=== PATIENT | female | born 1985 | race Caucasian/White ===

== ENCOUNTER 2017-03-29 01:37 | Inpatient (IN) | payer MEDICAID, OTHER ==
--- NOTE | 2017-03-29 02:26 | ED ---
General Adult HPI - General Chief complaint: Psychiatric Symptoms Stated complaint: mental health Time Seen by Provider: 03/29/17 02:10 Source: patient, RN notes reviewed Mode of arrival: ambulatory Limitations: no limitations - History of Present Illness Initial comments: Patient is a pleasant 31-year-old female presenting to the emergency Department with depression. Symptoms have been occurring for many months. Patient has had multiple events leading to her depression including loss of mother. Patient stays at home for long periods of time. Patient is unclear she has suicidal thoughts. No homicidal thoughts. No physical complaints. No alcohol or street drug use. No hallucinations. - Related Data Home Medications Medication Instructions Recorded Confirmed Amoxicillin/Potassium Clav 1 tab PO Q12HR 03/29/17 03/29/17 [Augmentin 875-125 Tablet] methylPREDNISolone Dose Pack 4 mg PO DIRECTED 03/29/17 03/29/17 [Medrol Dose Pack] Allergies Allergy/AdvReac Type Severity Reaction Status Date / Time No Known Allergies Allergy Verified 03/29/17 01:45 Review of Systems ROS Statement: Those systems with pertinent positive or pertinent negative responses have been documented in the HPI. ROS Other: All systems not noted in ROS Statement are negative. Constitutional: Denies: fever Eyes: Denies: eye pain ENT: Denies: ear pain Respiratory: Denies: cough Cardiovascular: Denies: chest pain Endocrine: Denies: fatigue Gastrointestinal: Denies: abdominal pain Genitourinary: Denies: dysuria Musculoskeletal: Denies: back pain Skin: Denies: rash Neurological: Denies: headache Psychiatric: Reports: depression Past Medical History Past Medical History: Cancer Additional Past Medical History / Comment(s): cervical cancer, migraine, tachycardia History of Any Multi-Drug Resistant Organisms: None Reported Past Surgical History: Cardiac Ablation, Hysterectomy Past Psychological History: Anxiety, PTSD Smoking Status: Never smoker Past Alcohol Use History: None Reported Past Drug Use History: None Reported General Exam Limitations: no limitations General appearance: alert, in no apparent distress Head exam: Present: atraumatic Eye exam: Present: normal appearance Neck exam: Present: normal inspection Respiratory exam: Present: normal lung sounds bilaterally Cardiovascular Exam: Present: regular rate, normal rhythm GI/Abdominal exam: Present: soft. Absent: tenderness Extremities exam: Present: normal inspection Neurological exam: Present: alert Psychiatric exam: Present: depressed Skin exam: Present: normal color, other (Patient has multiple small punctures of bilateral forearms consistent with stated history of recent ALLERGY testing.) Course Vital Signs 03/29/17 01:39 Temperature 98.7 F Pulse Rate 84 Respiratory 20 Rate Blood Pressure 112/77 O2 Sat by Pulse 100 Oximetry - Reevaluation(s) Reevaluation #1: 03/29/17 04:15 Patient was seen by mental health services, who will admit. Disposition Clinical Impression: Depression Disposition: TRANSFER TO PSYCH HOSP/UNIT Referrals: Kelvin Teague MD [Primary Care Provider] - 1-2 days Decision Time: 04:15
[2017-03-29] MEDS ORDERED: MAG HYDROX/AL HYDROX/SIMETH 30 ML CUP PO PRN (04:26)
[2017-03-29] MEDS ORDERED: MAGNESIUM HYDROXIDE 2,400 MG/10 ML CUP PO PRN (04:26)
[2017-03-29] MEDS ORDERED: ACETAMINOPHEN TAB 325 MG TAB PO PRN (04:26)
[2017-03-29 07:57] LABS: Basophils % (A) 0 %; Eosinophils # (A) 0.1 k/uL (0-0.7); Eosinophils % (A) 1 %; HCT 40.6 % (34.0-46.0); HGB 13.4 gm/dL (11.4-16.0); Lymphocytes # (A) 2.5 k/uL (1.0-4.8); Lymphocytes % (A) 27 %; MCH 29.6 pg (25.0-35.0); MCHC 32.9 g/dL (31.0-37.0); Mean Platelet Volume 8.9; Monocytes # (A) 0.6 k/uL (0-1.0); Monocytes % (A) 6 %; Neutrophils # (A) 6.2 k/uL (1.3-7.7); Neutrophils % (A) 66 %; Platelet Count 240 k/uL (150-450); RBC 4.51 m/uL (3.80-5.40); RDW 13.8 % (11.5-15.5); WBC 9.4 k/uL (3.8-10.6)
[2017-03-29 08:40] LABS: ALT 27 U/L (9-52); AST 13 U/L (14-36); Albumin 4.1 g/dL (3.5-5.0); Alkaline Phosphatase 33 U/L (38-126); Anion Gap 11 mmol/L; Blood Urea Nitrogen 10 mg/dL (7-17); Calcium 9.8 mg/dL (8.4-10.2); Carbon Dioxide 23 mmol/L (22-30); Chloride 108 mmol/L (98-107); Cholesterol 144 mg/dL (<200); Glucose 92 mg/dL (74-99); HDL Cholesterol 53 mg/dL (40-60); LDL Cholesterol,Calculated 81 mg/dL (0-99); Potassium 3.7 mmol/L (3.5-5.1); Sodium 142 mmol/L (137-145); Total Bilirubin 1.2 mg/dL (0.2-1.3); Total Protein 6.8 g/dL (6.3-8.2); Triglycerides 49 mg/dL (<150)
[2017-03-29] MEDS ORDERED: NADOLOL 20 MG TAB PO SCH (09:00)
[2017-03-29] MEDS: AMOXIC-POT CLAV 875-125MG 1 EACH TAB PO SCH ×2 (10:05→20:49)
[2017-03-29] MEDS: methylPREDNISolone 4 MG TAB TAPER PO SCH (10:42)
[2017-03-29] MEDS ORDERED: diphenhydrAMINE 25 MG CAP PO PRN (13:32)
[2017-03-29 16:31] LABS: Amorphous Sediment,Urine Rare /hpf; Appearance,Urine Turbid (Clear); Bacteria,Urine Many /hpf; Bilirubin,Urine Negative (Negative); Blood,Urine Negative (Negative); Color,Urine Yellow; Glucose,Urine (UA) Negative (Negative); Ketones,Urine Negative (Negative); Leukocyte Esterase,Urine Trace (Negative); Mucus,Urine Many /hpf; Nitrite,Urine Negative (Negative); PH, Urine 8.5 (5.0-8.0); Protein,Urine Trace (Negative); Specific Gravity,Urine 1.015 (1.001-1.035); Squamous Epithelial Cell,Urine 69 /hpf (0-4); WBC,Urine 12 /hpf (0-5)
[2017-03-29 16:33] LABS: Amphetamine Screen,Urine Not Detected (NotDetected); Barbiturate Screen,Urine Not Detected (NotDetected); Benzodiazepines Screen,Urine Not Detected (NotDetected); Cocaine Screen,Urine Not Detected (NotDetected); Methadone Screen, Urine Not Detected (NotDetected); Opiate Screen,Urine Not Detected (NotDetected); Oxycodone Screen, Urine Not Detected (NotDetected); Phencyclidine Screen,Urine Not Detected (NotDetected); Tricyclic Antidepressant,Urine Not Detected (NotDetected); Urn Cannabinoid Scrn Not Detected (NotDetected)
[2017-03-29 18:49] LABS: Hemoglobin A1C 4.9 % (4.0-6.0)
[2017-03-29] MEDS: FLUoxetine HCL 20 MG CAP PO SCH (19:36)
[2017-03-29] MEDS: OLANZapine 5 MG TAB PO SCH ×2 (19:36→20:49)
--- NOTE | 2017-03-29 19:59 | HP ---
HISTORY AND PHYSICAL DATE OF SERVICE: 03/29/2017 IDENTIFYING DATA: Patient is a 31-year-old female. She resides with her significant other and their 3 children. She presented to the emergency room with the chief complaint that the patient was depressed. She feels she has not been able to function. She says, "I feel broken." She has explosive moods. HISTORY OF PRESENTING ILLNESS: The patient has not had significant past psychiatric issues. She did have a hospitalization at age 17 relating to difficulties in her family situation. Other than that, she has not been on any psychotropic medications. Recently she has been taking Adipex 37.5 mg a day because of significant weight gain. She has had some migraine headache issues. She says her problems began to develop going back to July. Her mother on Mother's Day. Her mother of alcoholic cirrhosis and had a very long history of progressive problems with alcohol and drugs. Soon after that there were some problem issues with her 8-year-old who had some aggressive behavior and then was hospitalized at [facility]. In short succession after that her grandfather had some medical issues that were diagnosed as cancer that was quite progressive. He had some extensive medical care that was not producing any benefits. He ultimately went home. The family took care of him at home and he ended up passing away in December. In addition to that, there were significant ups and downs in her relationship with her father, who has serious substance use issues, including alcohol. He was in penitentiary for his DU. He was in penitentiary for 2-1/2 years and was released in December. At one point about 7 years ago he had a complete turnaround and stopped using alcohol and drugs. He re-developed a relationship with the patient, though then he ended up relapsing and things just got more severe. All of these things have come to a head for her. In addition, there are some issues with her children. Her 12-year-old daughter has a number of physical issues. She is a high achiever and does well in school but has some various physical issues that need to be closely attended to. Also her 8-year- old son has struggled with a lot of functional issues. He has sensory issues. He may well have autistic spectrum disorder. He has impulsive behavior and severe anxiety. He has obsessive-compulsive symptoms. The patient says that she struggles trying to provide good support for her son. She notes that at home she tends to show more problems with depression; over time she has been more isolated. Now she does not leave the house. She can have episodes where she is explosive where she will yell, become very agitated and throw things. She says she takes it out on the family, though it is not that they have done anything to set her off. She acknowledges that some of those reactions may be more PTSD flashbacks than anything else. She has been not sleeping well. She has loss of motivation, energy and interest. She has a lot of anxiety. She gets panic symptoms. She denies hallucinations or delusions. She reports no issues with alcohol, marijuana or other abusive substances. She is admitted for further evaluation. SUBSTANCE USE HISTORY: As above. PAST MEDICAL HISTORY AND PHYSICAL EXAMINATION: As per medical consultation. FAMILY AND SOCIAL HISTORY: As above. She notes that both of her children are intellectually high achievers. She says that between the two children she gave to a son who soon after secondary to trisomy 13. She grew up in a family with a very disorganized home situation. She said it was chaotic at home. At age 12 she ended up going into foster care. At age 17 she ran away from foster care and went back to her grandparents' home. She ultimately had custody placed in her grandparents. It is noted that between her parents there was very little attention to the home situation; often there was not food in the house. Both parents were intoxicated or doing drugs most all of the time. The patient notes that she has likely significant OCD symptoms. She says she constantly needs to be in control of things and be very overbearing on her boyfriend and children. In that regard, she cleans obsessively. She has some handwashing behavior. She has some other rituals. MENTAL STATUS EXAMINATION: Patient was somewhat restless. She gave good eye contact. She answered questions with direct responses. She was spontaneous and interactive. Her affect was intense. She had some crying spells during the interview. She could collect herself. Her mood was depressed. She was significantly distressed. She was oriented x3 and alert. Recent and remote memory was intact. Attention and concentration were good. She did not answer formal cognitive questions. Fund of knowledge and intellectual level average or above average. ASSESSMENT: This is a 31-year-old female who is diagnosed with major depression and post-traumatic stress disorder. She has been on Adipex, which could be aggravating some of her anxiety and mood-related issues. She has had multiple stressors that have compounded her mood and anxiety issues. She also has what appears to be fairly intense PTSD symptoms. Strengths include [place] intelligence and leading a productive life. Weakness includes adjustment to manage multiple stressors. DIAGNOSES: 1. Major depression, severe, without psychotic features. 2. Post-traumatic stress disorder. 3. Rule out obsessive-compulsive disorder. 4. History of migraine headaches. RECOMMENDATION: Patient will be admitted for comprehensive medical, psychiatric and psychosocial evaluation. We will engage the patient in individual and group therapeutic activities. I will start the patient on Prozac 20 mg a day. We discussed the indication for Prozac primarily for depression, though the patient may well have symptoms of obsessive- compulsive disorder as well. I will also start the patient on Zyprexa 5 mg 3 times a day. The aim of Zyprexa is to help augment her antidepressant and reduce physiologic stress response as it relates to multiple grief issues and likely post-traumatic flashbacks. We will focus on stabilization and discharge planning. MMODL / IJN: [id number] /
[2017-03-29] MEDS ORDERED: PREGABALIN 100 MG CAP PO SCH (21:00)
[2017-03-30] MEDS: FLUoxetine HCL 20 MG CAP PO SCH (08:56)
[2017-03-30] MEDS: OLANZapine 5 MG TAB PO SCH ×3 (08:56→20:42)
[2017-03-30] MEDS: LORATADINE 10 MG TAB PO SCH (08:56)
[2017-03-30] MEDS: AMOXIC-POT CLAV 875-125MG 1 EACH TAB PO SCH ×2 (08:56→20:41)
[2017-03-30] MEDS: NADOLOL 20 MG TAB PO SCH (08:57)
[2017-03-30] MEDS: methylPREDNISolone 4 MG TAB TAPER PO SCH (08:57)
[2017-03-30] MEDS ORDERED: methylPREDNISolone 4 MG TAB TAPER PO SCH (09:00)
[2017-03-30] MEDS ORDERED: TOPIRAMATE 100 MG TAB PO SCH (09:00)
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
--- NOTE | 2017-03-30 17:24 | PN ---
PROGRESS NOTE DATE OF SERVICE: 03/30/2017. CHIEF COMPLAINT: The patient was depressed. She feels she has not been able to function. She says "I feel broken." She has explosive moods. INTERVAL HISTORY: Patient has been doing fair. She had a quiet evening last night. She slept fair. Today she has been up. She says she is a little tired today. She thinks some of that relates to her medications and some to the fact that she did not get much sleep on the day of admission. It is also noted that she is being treated for a sinus infection and may be impacted by that as well. She says she has been attending groups and gaining some skills with that. She says it is interesting that she works with her 8-year-old son in coping skills and then herself went to a session today where the focus was coping skills. She was able to show some insight about some of her long-term issues. She acknowledges that one of her coping skills as a child was that she would simply pretend that everything was okay. This would get her through some pretty horrific situations. Also another coping skills she had was cutting herself when anxiety got too bad. She states she is able to acknowledge that some of the outbursts she has now probably relate to flashbacks to struggle she had early in life. She was able to discuss parenting issues that she thinks that could be addressed when she is back home. She has been touching base with her significant other with the plan to have a family meeting as part of discharge planning. She has not had change in her general health. She tolerates his psychotropic medications. MENTAL STATUS: Patient gave good eye contact. She was a little restless. Her thoughts were clear. She had an anxious affect. Her mood was dysphoric. She was somewhat distressed. ASSESSMENT: I will continue the current diagnosis and treatment plan. I will continue psychotropic medications the same. We had an extensive discussion regarding some of her psychodynamic issues. We talked about the option of her getting involved in the exposure therapy to address PTSD issues when she gets back to her individual psychotherapy. We will set up a family meeting for Sunday and it is reasonable at that point, I would look for discharge on Sunday. MARÍA / NIDHIN: [id number] /
[2017-03-31 07:05] VITALS: RESP 16
[2017-03-31] MEDS: AMOXIC-POT CLAV 875-125MG 1 EACH TAB PO SCH ×2 (09:44→20:59)
[2017-03-31] MEDS: NADOLOL 20 MG TAB PO SCH (09:44)
[2017-03-31] MEDS: methylPREDNISolone 4 MG TAB TAPER PO SCH (09:44)
[2017-03-31] MEDS: LORATADINE 10 MG TAB PO SCH (09:45)
[2017-03-31] MEDS: OLANZapine 5 MG TAB PO SCH ×3 (09:45→20:59)
[2017-03-31] MEDS: FLUoxetine HCL 20 MG CAP PO SCH (09:45)
--- NOTE | 2017-03-31 18:41 | PN ---
PROGRESS NOTE DATE OF SERVICE: 03/31/2017. INTERVAL HISTORY: Patient is seen in cross coverage today for Dr. Hawkins. She reports that her mood is doing better. She seems to be tolerating the psychotropic medications well. She is currently on Prozac and Zyprexa. She described some prior to hospitalization she had been feeling overwhelmed by multiple recent stressors. MENTAL STATUS EXAM: She is alert, pleasant, and cooperative. Her mood is improved. Her speech is fluent not rapid or pressured. She denies any thoughts of suicide. She does not show any evidence of psychosis or agitation. PLAN: The patient will be maintained on current psychotropic medication regimen. We will monitor for any medication side effects. Continue to monitor her mood and ongoing response. MMODL / IJN: [id number] /
[2017-04-01] MEDS: FLUoxetine HCL 20 MG CAP PO SCH (09:33)
[2017-04-01] MEDS: NADOLOL 20 MG TAB PO SCH (09:33)
[2017-04-01] MEDS: methylPREDNISolone 4 MG TAB TAPER PO SCH (09:33)
[2017-04-01] MEDS: OLANZapine 5 MG TAB PO SCH ×3 (09:33→20:50)
[2017-04-01] MEDS: LORATADINE 10 MG TAB PO SCH (09:33)
[2017-04-01] MEDS: AMOXIC-POT CLAV 875-125MG 1 EACH TAB PO SCH ×2 (09:33→20:50)
--- NOTE | 2017-04-01 15:53 | PN ---
PROGRESS NOTE DATE OF SERVICE: 04/01/2017. INTERVAL HISTORY: Patient is seen in cross coverage again today for Dr. Hawkins. She reports that she does feel like she has made progress here. She talks about feeling like she will be ready for discharge tomorrow. She does feel somewhat tired, she thinks related to the medication, but it is tolerable. She did have a visit with her boyfriend last night, which went well. MENTAL STATUS EXAM: She is alert, pleasant, cooperative. Her speech is fluent. Her thought process is organized. Her mood seems to be improved. She denies any thoughts of harm to self or others. No evidence of active psychosis. She denies any hallucinations. She does not make any delusional statements. PLAN: Patient will be maintained on current psychotropic medication regimen. Continue to monitor for any medication side effects. Monitor her ongoing response. Dr. Hawkins to resume care of this patient starting tomorrow. MMLEFTYL / NIDHIN: [id number] /
[2017-04-02 06:37] VITALS: BP 100/57; PULSE 77; TEMP 98.6
[2017-04-02] MEDS: AMOXIC-POT CLAV 875-125MG 1 EACH TAB PO SCH (08:30)
[2017-04-02] MEDS: NADOLOL 20 MG TAB PO SCH (08:30)
[2017-04-02] MEDS: LORATADINE 10 MG TAB PO SCH (08:30)
[2017-04-02] MEDS: FLUoxetine HCL 20 MG CAP PO SCH (08:30)
[2017-04-02] MEDS: OLANZapine 5 MG TAB PO SCH (08:30)
[2017-04-02] MEDS: methylPREDNISolone 4 MG TAB TAPER PO SCH (08:30)
--- NOTE | 2017-04-02 13:12 | DS ---
DISCHARGE SUMMARY DATE OF SERVICE: 04/02/2017 DATE OF ADMISSION: 03/29/2017 DATE OF DISCHARGE: 04/02/2017 ADMISSION AND DISCHARGE DIAGNOSES: 1. Major depression, severe, without psychotic features. 2. Posttraumatic stress disorder. 3. Rule out obsessive-compulsive disorder. 4. History of migraine headaches. HISTORY OF PRESENTING ILLNESS: The patient is a 31-year-old female. She was admitted due to increasing problems with depression. She talked about not being able to function and described herself as "I feel broken". She had explosive episodes. She had a past psychiatric hospitalization at age 17 relating to difficult family situations. Currently she was not on any psychotropic medications. She was taking Adipex 37.5 mg a day for weight reduction. She has a history of migraine headaches. She has had many family issues. There was a chaotic family environment growing up. In addition, her mother this past Mother's Day, which caused her a lot of distress. Her mother has severe alcohol and drug problems. The patient noted that she had been withdrawing. She did not want to come out of the house. She was having sleep problems. She struggled with family issues as well. She and her significant other would get into arguments that would invariably lead to her having a blowup where she would become agitated and aggressive. Also, she has an 8-year-old son who has significant behavior issues. She described a lot of obsessive and compulsive behaviors. She had poor sleep and loss of motivation, energy and interest. She had high anxiety and was getting frequent panic attacks. There was no indication of thought disorder. There was no substance use issue. She was admitted for further evaluation. PAST MEDICAL HISTORY AND PHYSICAL EXAM: As per medical consultation of Dr. Teague. MENTAL STATUS EXAM: The patient was somewhat restless. She gave good eye contact. She answered questions with direct responses. Her affect was intense. She had some crying during the interview. Her mood was depressed. She was significantly distressed. Cognitive exam was clear. COURSE OF HOSPITALIZATION: Patient was admitted for comprehensive medical psychiatric and psychosocial evaluation. We engaged the patient in individual and group therapeutic activities. On admission, the patient was started on Prozac 20 mg a day. The aim of Prozac was to help address not only depression but potentially some OCD range of symptoms. In addition, she was started on Zyprexa 5 mg 3 times a day. The aim of Zyprexa was to help reduce physiologic stress response as it related to possible PTSD flashbacks and possibly some withdrawal from her Adipex. During the early course of her hospitalization. the patient was reporting that she felt a little uncomfortable with her medications. She could not really describe particulars of that. She said after a day or 2 that seemed to quiet down and she felt like she was "my normal self". She attended groups. She was interactive with others. She got into a good sleep pattern. She was able to engage in discharge planning. We had a family meeting with the patient's aunt who is the closest family member to her other than with her significant other with whom she lives. They were able to discuss communication issues in particularly how the patient tends to close herself off when things begin to bother her. The patient seemed to gain good insight about some of her own issues that she wanted to work on. She also felt that her and her significant other needed to work on their relationship and other communication issues. The patient's mood had improved significantly. She had a better outlook. She had set up some good goals for herself. We did discuss the possibility of her getting involved in some exposure therapy for PTSD symptoms. CONDITION AT DISCHARGE: Patient was stable. Mood was improved. She tolerated her medications well. She was motivated for followup. RECOMMENDATIONS AND FOLLOWUP: Patient is discharged to home. Discharge medications include: 1. Prozac 20 mg a day. 2. Zyprexa 5 mg 3 times a day. 3. In addition, she would continue on Corgard 20 mg a day. 4. Zanaflex 4 mg twice a day. 5. Zyrtec 10 mg daily. 6. Medrol dose pack as appropriate. She has a followup with Dr. Anglin on 04/03/2017 at 9 a.m. for individual therapy. She will see Dr. Teague for primary care. MMODL / IJN: [id number] /
== END 2017-04-02 13:00 | disposition home or self-care (01) | DRG 885 ==
LOC: EC 01:37 → 3MHU 04:18
PROVIDERS: ADMIT Psychiatry & Neurology Psychiatry; ATTEND Psychiatry & Neurology Psychiatry
DX: F32.2 Major depressive disorder, single episode, severe without psychotic features (principal); F41.0 Panic disorder [episodic paroxysmal anxiety]; F42.9 Obsessive-compulsive disorder, unspecified; F43.10 Post-traumatic stress disorder, unspecified; G43.909 Migraine, unspecified, not intractable, without status migrainosus; G47.00 Insomnia, unspecified; Z90.710 Acquired absence of both cervix and uterus; Z79.899 Other long term (current) drug therapy
CPT/HCPCS: 80053; 80061; 80306; 81001; 81025; 82075; 83036; 84443; 85025; 99285

== ENCOUNTER 2017-11-28 16:16 | Inpatient (IN) | payer MEDICAID, OTHER ==
--- NOTE | 2017-11-28 17:40 | ED ---
Psych HPI - General Chief Complaint: Psychiatric Symptoms Stated Complaint: Mental Health Time Seen by Provider: 11/28/17 17:04 Source: patient, RN notes reviewed Mode of arrival: ambulatory Limitations: no limitations - History of Present Illness Initial Comments: 32-year-old female presents emergency Department chief complaint of depression, suicidal ideation. Patient states she was seen and admitted in March here. Patient states that she had to this in the family which causes her to be very depressed. She was placed on antidepressants and she was feeling okay and felt that she did not need to take her meds anymore so she stopped her Prozac. She also stated that it was causing her to gain weight which made her also feel worse. Patient states that now she cannot tolerate the symptoms that she has been having intermittent suicidal ideations with no plan. Denies any drug or alcohol abuse. Patient has no physical complaints. Patient states that she has no homicidal ideation - Related Data Home Medications Medication Instructions Recorded Confirmed No Known Home Medications 11/28/17 11/28/17 Allergies Allergy/AdvReac Type Severity Reaction Status Date / Time No Known Allergies Allergy Verified 11/28/17 17:10 Review of Systems ROS Statement: Those systems with pertinent positive or pertinent negative responses have been documented in the HPI. ROS Other: All systems not noted in ROS Statement are negative. Past Medical History Past Medical History: Cancer Additional Past Medical History / Comment(s): cervical cancer, migraine, tachycardia History of Any Multi-Drug Resistant Organisms: None Reported Past Surgical History: Cardiac Ablation, Hysterectomy Past Psychological History: Anxiety, PTSD Smoking Status: Never smoker Past Alcohol Use History: None Reported Past Drug Use History: None Reported General Exam Limitations: no limitations General appearance: alert, in no apparent distress ENT exam: Present: normal exam, normal oropharynx, mucous membranes moist Neck exam: Present: normal inspection. Absent: tenderness, meningismus, lymphadenopathy Respiratory exam: Present: normal lung sounds bilaterally. Absent: respiratory distress, wheezes, rales, rhonchi, stridor Cardiovascular Exam: Present: regular rate, normal rhythm, normal heart sounds. Absent: systolic murmur, diastolic murmur, rubs, gallop, clicks GI/Abdominal exam: Present: soft, normal bowel sounds. Absent: distended, tenderness, guarding, rebound, rigid Neurological exam: Present: alert, oriented X3, CN II-XII intact Psychiatric exam: Present: depressed Skin exam: Present: warm, dry, intact, normal color. Absent: rash Course Vital Signs 11/28/17 16:45 Temperature 98.2 F Pulse Rate 91 Respiratory 20 Rate Blood Pressure 114/80 O2 Sat by Pulse 100 Oximetry Medical Decision Making - Lab Data Lab Results 11/28/17 Range/Units 18:00 Urine Opiates Screen Not Detected (NotDetected) Ur Oxycodone Screen Not Detected (NotDetected) Urine Methadone Screen Not Detected (NotDetected) Ur Propoxyphene Screen Not Detected (NotDetected) Ur Barbiturates Screen Not Detected (NotDetected) U Tricyclic Antidepress Not Detected (NotDetected) Ur Phencyclidine Scrn Not Detected (NotDetected) Ur Amphetamines Screen Not Detected (NotDetected) U Methamphetamines Scrn Not Detected (NotDetected) U Benzodiazepines Scrn Not Detected (NotDetected) Urine Cocaine Screen Not Detected (NotDetected) U Marijuana (THC) Screen Not Detected (NotDetected) Disposition Clinical Impression: Depression, Suicidal ideation Disposition: ADMITTED IP TO THIS [facility] Condition: Stable Referrals: Kelvin Teague MD [Primary Care Provider] - 1-2 days
[2017-11-28 18:24] LABS: Amphetamine Screen,Urine Not Detected (NotDetected); Barbiturate Screen,Urine Not Detected (NotDetected); Benzodiazepines Screen,Urine Not Detected (NotDetected); Cocaine Screen,Urine Not Detected (NotDetected); Methadone Screen, Urine Not Detected (NotDetected); Opiate Screen,Urine Not Detected (NotDetected); Oxycodone Screen, Urine Not Detected (NotDetected); Phencyclidine Screen,Urine Not Detected (NotDetected); Tricyclic Antidepressant,Urine Not Detected (NotDetected); Urn Cannabinoid Scrn Not Detected (NotDetected)
[2017-11-28] MEDS ORDERED: ACETAMINOPHEN TAB 325 MG TAB PO STA (20:22)
[2017-11-28] MEDS ORDERED: ACETAMINOPHEN TAB 325 MG TAB PO PRN (21:00)
[2017-11-28] MEDS ORDERED: MAGNESIUM HYDROXIDE 2,400 MG/10 ML CUP PO PRN (21:00)
[2017-11-28] MEDS ORDERED: MAG HYDROX/AL HYDROX/SIMETH 30 ML CUP PO PRN (21:00)
[2017-11-28] MEDS ORDERED: LORazepam 1 MG TAB PO PRN (21:03)
[2017-11-28] MEDS ORDERED: diphenhydrAMINE 25 MG CAP PO PRN (21:04)
[2017-11-28] MEDS ORDERED: FLUoxetine HCL 20 MG CAP PO SCH (21:15)
[2017-11-28] MEDS: PALIPERIDONE 3 MG TAB.ER.24 PO SCH (22:30)
[2017-11-29] MEDS: FLUoxetine HCL 20 MG CAP PO SCH ×2 (09:18→14:39)
[2017-11-29 09:21] LABS: Basophils % (A) 1 %; Eosinophils # (A) 0.4 k/uL (0-0.7); Eosinophils % (A) 11 %; HGB 13.7 gm/dL (11.4-16.0); Lymphocytes # (A) 1.1 k/uL (1.0-4.8); Lymphocytes % (A) 31 %; MCHC 32.6 g/dL (31.0-37.0); MCV 88.9 fL (80.0-100.0); Monocytes # (A) 0.3 k/uL (0-1.0); Monocytes % (A) 8 %; Neutrophils # (A) 1.8 k/uL (1.3-7.7); Neutrophils % (A) 48 %; Platelet Count 198 k/uL (150-450); RBC 4.73 m/uL (3.80-5.40); RDW 12.3 % (11.5-15.5); WBC 3.7 k/uL (3.8-10.6)
[2017-11-29 09:34] LABS: ALT 17 U/L (9-52); AST 18 U/L (14-36); Albumin 4.2 g/dL (3.5-5.0); Alkaline Phosphatase 34 U/L (38-126); Anion Gap 11 mmol/L; Blood Urea Nitrogen 13 mg/dL (7-17); Calcium 9.4 mg/dL (8.4-10.2); Carbon Dioxide 26 mmol/L (22-30); Chloride 106 mmol/L (98-107); Glucose 84 mg/dL (74-99); Potassium 4.1 mmol/L (3.5-5.1); Sodium 143 mmol/L (137-145); Total Bilirubin 2.1 mg/dL (0.2-1.3); Total Protein 7.1 g/dL (6.3-8.2)
--- NOTE | 2017-11-29 10:03 | P.HP ---
Psychiatric H&P - . H&P Date: 11/29/17 History & Physical: 32-year-old female presents emergency Department chief complaint of depression, suicidal ideation. Patient states she was seen and admitted in March here. Patient states that she had to this in the family which causes her to be very depressed. She was placed on antidepressants and she was feeling okay and felt that she did not need to take her meds anymore so she stopped her Prozac. She also stated that it was causing her to gain weight which made her also feel worse. Patient states that now she cannot tolerate the symptoms that she has been having intermittent suicidal ideations with no plan. Denies any drug or alcohol abuse. Patient has no physical complaints. Patient states that she has no homicidal ideation Review of Systems ROS Statement: Those systems with pertinent positive or pertinent negative responses have been documented in the HPI. ROS Other: All systems not noted in ROS Statement are negative. Past Medical History Past Medical History: Cancer Additional Past Medical History / Comment(s): cervical cancer, cluster headache , tachycardia History of Any Multi-Drug Resistant Organisms: None Reported Past Surgical History: Cardiac Ablation, Hysterectomy Past Psychological History: Anxiety, PTSD Smoking Status: Never smoker Past Alcohol Use History: None Reported Past Drug Use History: None Reported General Exam Limitations: no limitations General appearance: alert, in no apparent distress ENT exam: Present: normal exam, normal oropharynx, mucous membranes moist Neck exam: Present: normal inspection. Absent: tenderness, meningismus, lymphadenopathy Respiratory exam: Present: normal lung sounds bilaterally. Absent: respiratory distress, wheezes, rales, rhonchi, stridor Cardiovascular Exam: Present: regular rate, normal rhythm, normal heart sounds. Absent: systolic murmur, diastolic murmur, rubs, gallop, clicks GI/Abdominal exam: Present: soft, normal bowel sounds. Absent: distended, tenderness, guarding, rebound, rigid Neurological exam: Present: alert, oriented X3, CN II-XII intact Psychiatric exam: Present: depressed Skin exam: Present: warm, dry, intact, normal color. Absent: rash Disposition hospitalized Clinical Impression: MDD Depression, Suicidal ideation Allergies Allergy/AdvReac Type Severity Reaction Status Date / Time mold Allergy Wheezing Verified 11/28/17 20:45 dust mites Allergy Wheezing Uncoded 11/28/17 20:45 trees Allergy Wheezing Uncoded 09/19/18 20:45 Vital Signs Temp 98.2 F 11/29/17 07:00 Pulse 124 H 11/29/17 07:00 Resp 16 11/29/17 07:00 BP 113/62 11/29/17 07:00 Pulse Ox 99 11/28/17 21:08 Intake & Output 11/28/17 11/29/17 11/29/17 18:59 06:59 18:59 Weight 65.317 kg 61.235 kg Laboratory Last Values WBC 3.7 k/uL (3.8-10.6) L 11/29/17 08:28 RBC 4.73 m/uL (3.80-5.40) 11/29/17 08:28 Hgb 13.7 gm/dL (11.4-16.0) 11/29/17 08:28 Hct 42.0 % (34.0-46.0) 11/29/17 08:28 MCV 88.9 fL (80.0-100.0) 11/29/17 08:28 MCH 29.0 pg (25.0-35.0) 11/29/17 08:28 MCHC 32.6 g/dL (31.0-37.0) 11/29/17 08:28 RDW 12.3 % (11.5-15.5) 11/29/17 08:28 Plt Count 198 k/uL (150-450) 11/29/17 08:28 Neutrophils % 48 % 11/29/17 08:28 Lymphocytes % 31 % 11/29/17 08:28 Monocytes % 8 % 11/29/17 08:28 Eosinophils % 11 % 11/29/17 08:28 Basophils % 1 % 11/29/17 08:28 Neutrophils # 1.8 k/uL (1.3-7.7) 11/29/17 08:28 Lymphocytes # 1.1 k/uL (1.0-4.8) 11/29/17 08:28 Monocytes # 0.3 k/uL (0-1.0) 11/29/17 08:28 Eosinophils # 0.4 k/uL (0-0.7) 11/29/17 08:28 Basophils # 0.0 k/uL (0-0.2) 11/29/17 08:28 Sodium 143 mmol/L (137-145) 11/29/17 08:28 Potassium 4.1 mmol/L (3.5-5.1) 11/29/17 08:28 Chloride 106 mmol/L (98-107) 11/29/17 08:28 Carbon Dioxide 26 mmol/L (22-30) 11/29/17 08:28 Anion Gap 11 mmol/L 11/29/17 08:28 BUN 13 mg/dL (7-17) 11/29/17 08:28 Creatinine 0.75 mg/dL (0.52-1.04) 11/29/17 08:28 Est GFR (CKD-EPI)AfAm >90 (>60 ml/min/1.73 sqM) 11/29/17 08:28 Est GFR (CKD-EPI)NonAf >90 (>60 ml/min/1.73 sqM) 11/29/17 08:28 Glucose 84 mg/dL (74-99) 11/29/17 08:28 Calcium 9.4 mg/dL (8.4-10.2) 11/29/17 08:28 Total Bilirubin 2.1 mg/dL (0.2-1.3) H 11/29/17 08:28 AST 18 U/L (14-36) 11/29/17 08:28 ALT 17 U/L (9-52) 11/29/17 08:28 Alkaline Phosphatase 34 U/L (38-126) L 11/29/17 08:28 Total Protein 7.1 g/dL (6.3-8.2) 11/29/17 08:28 Albumin 4.2 g/dL (3.5-5.0) 11/29/17 08:28 Urine HCG, Qual Not Detected (Not Detectd) 11/28/17 18:00 Urine Opiates Screen Not Detected (NotDetected) 11/28/17 18:00 Ur Oxycodone Screen Not Detected (NotDetected) 11/28/17 18:00 Urine Methadone Screen Not Detected (NotDetected) 11/28/17 18:00 Ur Propoxyphene Screen Not Detected (NotDetected) 11/28/17 18:00 Ur Barbiturates Screen Not Detected (NotDetected) 11/28/17 18:00 U Tricyclic Antidepress Not Detected (NotDetected) 11/28/17 18:00 Ur Phencyclidine Scrn Not Detected (NotDetected) 11/28/17 18:00 Ur Amphetamines Screen Not Detected (NotDetected) 11/28/17 18:00 U Methamphetamines Scrn Not Detected (NotDetected) 11/28/17 18:00 U Benzodiazepines Scrn Not Detected (NotDetected) 11/28/17 18:00 Urine Cocaine Screen Not Detected (NotDetected) 11/28/17 18:00 U Marijuana (THC) Screen Not Detected (NotDetected) 11/28/17 18:00 Impression: Major depression, recurrent severe; plan is to admit to the psychiatric unit 20 mg Prozac and add Invega 3 mg at bedtime. She also has herpes simplex type I and will use a virus 400 mg twice a day. Claritan 10 mg po qd. 11/29/17 09:52 11/29/17 09:58 11/29/17 10:02
[2017-11-29] MEDS: ACYCLOVIR 200 MG CAP PO SCH (20:16)
[2017-11-29] MEDS: PALIPERIDONE 3 MG TAB.ER.24 PO SCH (20:16)
[2017-11-30] MEDS: FLUoxetine HCL 20 MG CAP PO SCH (08:02)
[2017-11-30] MEDS: LORATADINE 10 MG TAB PO SCH (08:03)
[2017-11-30] MEDS: ACYCLOVIR 200 MG CAP PO SCH ×2 (08:03→20:40)
--- NOTE | 2017-11-30 12:07 | P.PN ---
Subjective Progress Note Date: 11/30/17 Principal diagnosis: MDD severe with suicidal ideation 32-year-old female presents emergency Department chief complaint of depression, suicidal ideation. Patient states she was seen and admitted in March here. Patient states that she had to this in the family which causes her to be very depressed. She was placed on antidepressants and she was feeling okay and felt that she did not need to take her meds anymore so she stopped her Prozac. She also stated that it was causing her to gain weight which made her also feel worse. Patient states that now she cannot tolerate the symptoms that she has been having intermittent suicidal ideations with no plan. Denies any drug or alcohol abuse. Patient has no physical complaints. Patient states that she has no homicidal ideation The patient presents alert and cooperative. There calmly seated without any agitated behavior. She reports that mood is 5/10. Affect is congruent and is depressed She deny having any suicidal or homicidal ideation intent or plan. She denies any auditory or visual hallucinations. There is no evidence of any delusional thought content. She thought process is linear and goal-directed. Her speech is fluent and non-pressured. Her memory and concentration is grossly intact for the purposes of this session. Will add lamictal for mood stability. Prozac 20 mg and Invega 3 po qhs. Impression: Major depression, recurrent severe; plan is to admit to the psychiatric unit 20 mg Prozac and add Invega 6 mg at bedtime. Objective - Vital Signs Vital signs: Vital Signs Temp 97.9 F 11/30/17 06:41 Pulse 93 11/30/17 06:41 Resp 18 11/30/17 06:41 BP 111/53 11/30/17 06:41 Pulse Ox 99 11/28/17 21:08 - Labs CBC & Chem 7: 11/29/17 08:28 11/29/17 08:28
--- NOTE | 2017-11-30 12:16 | CONS ---
CONSULTATION CHIEF COMPLAINT: Major depression with bipolar tendencies. HISTORY OF PRESENT ILLNESS: This is another admission for this 32-year-old white female who has had psychiatric issues in the past. She was on numerous medications and doing fairly well, but she was upset because she was gaining weight. She stopped them and did well for a while and then she started to have difficulty with her depression and recognized she needed help and came in. She had been on the fluoxetine 20 mg once a day, olanzapine 5 mg 3 times a day, 20 mg once a day. REVIEW OF SYSTEMS: She has had no headaches, neurologic problems, hallucinations, chest pain, shortness of breath, palpitations, abdominal pain, nausea, vomiting, diarrhea, melena, urinary complaints, no vaginal discharge or bleeding, etc. Past medical history, family history and personal and social histories reveal that she is allergic to TRAZODONE. She is not a smoker and does not drink. PHYSICAL EXAM: Blood pressure 112/80, pulse of 80, respirations 16. She is afebrile. GENERAL: She appeared to be well developed, well nourished, in no acute distress. Skin color is normal. Skin is warm and dry. Lymph nodes are not enlarged. Head, ears, eyes, nose, mouth, and throat were normal. Neck veins not distended. Thyroid is not enlarged. Chest is clear. Cardiac exam is normal. Abdomen is soft, nontender. Extremities are normal. Neurologically, she is intact and her affect seems normal. IMPRESSION: Bipolar depression. RECOMMENDATIONS: None at this time. MMODL / IJN: [id number] /
[2017-11-30] MEDS: lamoTRIgine 25 MG TAB PO SCH (20:40)
[2017-11-30] MEDS: PALIPERIDONE 3 MG TAB.ER.24 PO SCH (20:41)
[2017-12-01] MEDS: FLUoxetine HCL 20 MG CAP PO SCH (08:10)
[2017-12-01] MEDS: LORATADINE 10 MG TAB PO SCH (08:10)
[2017-12-01] MEDS: ACYCLOVIR 200 MG CAP PO SCH ×2 (08:10→20:13)
--- NOTE | 2017-12-01 12:08 | P.PN ---
Progress Note - Text Interval history: The patient is found in group she follows me to an interview room. The patient was admitted for severe symptoms of depression. She has been restarted on Prozac placed on Lamictal and invega. She states she continues to struggle with sleep and this has been a chronic issue. She also describes her significant concern regarding weight gain risk as it pertains to medication. She was previously on Zyprexa and gained 30 pounds. We reviewed her psychotropic medications including the risk for weight gain. The patient has been attending groups. Appetite stable. Mental status exam: The patient is a female appearing her stated age. She presents with good hygiene grooming she is dressed in her own clothing she is wearing eyeglasses. Speech is fluent spontaneous nonpressured. She feels that her mood is stabilizing. She is reporting no acute suicidal or homicidal ideation intent or plan. She is endorsing no auditory or visual hallucinations or any specific delusions. There is no evidence of tangential thinking loose associations or flight of ideas. She does not appear hypomanic or manic. She maintains a constricted affect. She demonstrates no verbal or physical aggressiveness she demonstrates no abnormal involuntary movements. She does demonstrate future oriented thinking. Plan: The patient will continue on her current psychotropic medications. She has felt that the Prozac was helpful in the past. Lamictal is being added as an additional mood stabilizer. Due to her significant concern regarding weight gain risk will discontinue the invega. She has not felt that that's helped with sleep so far. She also has a concern of taking something to strong that may not allow her to wake up if her child needs her at home. We discussed trying a low dose of melatonin and she was agreeable. We will monitor for safety she is encouraged to continue participating in the milieu.
[2017-12-01] MEDS: MELATONIN 3 MG TABLET PO SCH (20:13)
[2017-12-01] MEDS: lamoTRIgine 25 MG TAB PO SCH (20:13)
[2017-12-02] MEDS: ACYCLOVIR 200 MG CAP PO SCH ×2 (07:43→20:19)
[2017-12-02] MEDS: LORATADINE 10 MG TAB PO SCH (07:43)
[2017-12-02] MEDS: FLUoxetine HCL 20 MG CAP PO SCH (07:43)
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
[2017-12-02] MEDS: lamoTRIgine 25 MG TAB PO SCH (20:19)
[2017-12-02] MEDS: MELATONIN 3 MG TABLET PO SCH (20:19)
[2017-12-03 06:51] VITALS: TEMP 98
[2017-12-03] MEDS: FLUoxetine HCL 20 MG CAP PO SCH (08:21)
[2017-12-03] MEDS: ACYCLOVIR 200 MG CAP PO SCH (08:21)
[2017-12-03] MEDS: LORATADINE 10 MG TAB PO SCH (08:22)
[2017-12-03 08:32] VITALS: BP 123/61; PULSE 113; RESP 18
--- NOTE | 2017-12-03 12:45 | P.DS ---
Providers Date of admission: 11/28/17 20:05 Expected date of discharge: 12/03/17 Attending physician: Donato Villalobos DO Consults: 11/28/17 21:00 Consult Physician Routine Consulting Provider: Kelvin Teague Consult Reason/Comments: Medical management Do you want consulting provider notified?: Yes, Notify in am Primary care physician: Kelvin Teague - Discharge Diagnosis(es) (1) Depression Current Visit: Yes Status: Acute Priority: Low Hospital Course: Identifying Information: [32-year-old female presents emergency Department chief complaint of depression, suicidal ideation. Patient states she was seen and admitted in March here. Patient states that she had to this in the family which causes her to be very depressed. She was placed on antidepressants and she was feeling okay and felt that she did not need to take her meds anymore so she stopped her Prozac.] Chief Complaint and Reason for Hospitalization: [Feeling depressed and overwhelmed] Course of Treatment: [She was admitted on 11/29/2017 and was restarted on her Prozac adding Topamax and Lamictal. Her laboratory results are well within normal limits except for total bilirubin was 2.1 and alkaline phosphatase was low at 34. She had difficulty first 24 hours stabilizing on medications did extremely well through her hospitalization going to groups, nursing groups, recreational therapy, and tended to do well in the [facility] therapeutic environment. She is a exceptionally bright young 32-year-old female with 2 children and her fianc Avni. She has a good relationship with her aunt and she has agreed with her outpatient therapy and following up with her primary care physician.] Physical/Medical Condition on Discharge:[ Stable] Functional Condition on Discharge: [Stabilized intellectual functioning at the time of discharge] Discharge Medications: [Occasions listed below and sent to her pharmacy] Number of Routinely Scheduled Antipsychotic Medication(s) Prescribed: [No antipsychotics written] Appropriate Justification for discharging the Patient on Two or More Antipsychotic Medications: [Antipsychotics written] Discharge Diagnosis: [Major depressive disorder, recurrent, stable at discharge with a history of migraines] Risk Factors: [We discussed risk factors of her stopping her medication she needs maintained on for the rest of her life since she's had 3 episodes are more at the age of 32.] Recommendations/Follow-up/Aftercare: [We discussed her following up with [facility] and staying on her medications and following up with her primary care physician as well as discussed healthy lifestyle, exercise, and continue supportive care for her child that needs [facility] assistance is her plan.] Patient Condition at Discharge: Stable Plan - Discharge Summary Discharge Rx Participant: Yes New Discharge Prescriptions: New Acyclovir [Zovirax] 400 mg PO BID #60 cap FLUoxetine HCL [PROzac] 20 mg PO DAILY #30 cap lamoTRIgine [LaMICtal] 25 mg PO Q24H #30 tab Continue Topiramate [Trokendi Xr] 200 mg PO DAILY Discontinued HYDROcodone/APAP 5-325MG [[place] 5-325] 5 - 325 mg PO DAILY PRN PRN Reason: pain Pregabalin [Lyrica] 150 mg PO BID Naproxen [Naprosyn] 500 mg PO BID Discharge Medication List Topiramate [Trokendi Xr] 200 mg PO DAILY 11/29/17 [History] Acyclovir [Zovirax] 400 mg PO BID #60 cap 12/03/17 [Rx] FLUoxetine HCL [PROzac] 20 mg PO DAILY #30 cap 12/03/17 [Rx] lamoTRIgine [LaMICtal] 25 mg PO Q24H #30 tab 12/03/17 [Rx] Follow up Appointment(s)/Referral(s): [facility] [Outside] - 1 Week (Intake appt. scheduled for walk in no later than 12/05/17 at any of the following days/times: Sunday: 9-2; Sunday: 10:30-5; Sunday: 9-2.) Kelvin Teague MD [Primary Care Provider] - 1-2 days Discharge Disposition: HOME SELF-CARE
== END 2017-12-03 14:15 | disposition home or self-care (01) | DRG 885 ==
LOC: EC 16:16 → 3MHU 20:05
PROVIDERS: ADMIT Psychiatry & Neurology Psychiatry; ATTEND Psychiatry & Neurology Psychiatry
DX: F33.2 Major depressive disorder, recurrent severe without psychotic features (principal); R45.851 Suicidal ideations; B00.9 Herpesviral infection, unspecified; F43.10 Post-traumatic stress disorder, unspecified; Z85.41 Personal history of malignant neoplasm of cervix uteri; Z90.710 Acquired absence of both cervix and uterus; G43.909 Migraine, unspecified, not intractable, without status migrainosus
CPT/HCPCS: 80053; 80306; 81025; 82075; 84443; 85025; 99285

== ENCOUNTER 2018-10-25 15:24 | Emergency (ER) | payer OTHER ==
[2018-10-25 15:34] VITALS: BP 115/75; PULSE 102; RESP 20; TEMP 98.7
[2018-10-25] MEDS ORDERED: LIDOCAINE 1% INJ 10MG/ML (20 ML MDV) SQ ONE (15:44)
[2018-10-25] MEDS ORDERED: BUPIVACAINE (PF) 0.25% 30 ML VIAL SQ STA (15:46)
--- NOTE | 2018-10-25 15:56 | XR ---
Right hand HISTORY: Trauma and pain to fourth digit 3 views of the right hand Bone mineralization, joint spaces and alignment are maintained. IMPRESSION: No fracture or dislocation.
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
[2018-10-25] MEDS ORDERED: TOPICAL SKIN ADHESIVE 1 EACH AMP TOPICAL ONE (16:22)
== END 2018-10-25 16:37 | disposition home or self-care (01) ==
LOC: EC 15:24
DX: S61.214A Laceration without foreign body of right ring finger without damage to nail, initial encounter (principal); Z79.899 Other long term (current) drug therapy; Z91.018 Allergy to other foods; Z91.09 Other allergy status, other than to drugs and biological substances; Z85.41 Personal history of malignant neoplasm of cervix uteri; W23.0XXA Caught, crushed, jammed, or pinched between moving objects, initial encounter
CPT/HCPCS: 73130; 99283; 12001; J2001